=== PATIENT | male | born 1950 | race Caucasian/White ===

== ENCOUNTER 2017-03-06 17:52 | Inpatient (IN) | payer OTHER ==
[~2017-03-06] VITALS: Ht 175.3 cm; Wt 114.3 kg
--- NOTE | 2017-03-06 19:08 | Diagnostic Imaging Report ---
EXAM: Abdomen 4 Views including PA chest INDICATION: \S\CONSTIPATION \S\Y COMPARISON: None FINDINGS: Moderate amount of stool in the colon. No dilated loops of small bowel. Nonspecific air-fluid levels on upright position. Indeterminate calcification overlying the left pelvis. No abnormal calcifications overlying the renal shadows. No abnormal soft tissue masses. Moderate degenerative changes in the lumbar spine and pelvis. The lungs are clear. Tortuous thoracic aorta. The cardiac silhouette is within normal limits. IMPRESSION: 1. Moderate amount of retained feces without bowel dilatation or obstruction. 2. Indeterminate calcification overlying the left pelvis. Signed by: Dr. Patti Wall M.D. on 03/06/2017 7:04 PM
[2017-03-06] MEDS ORDERED: SODIUM CHLORIDE 0.9% 1000ML 1,000 ML IV STA (22:42)
[2017-03-06] MEDS ORDERED: ONDANSETRON HCL INJ 2 MG/ML VIAL IV STA (22:42)
[2017-03-06] MEDS ORDERED: PANTOPRAZOLE 40 MG 10ML VIAL IV STA (22:42)
[2017-03-06] MEDS ORDERED: DIATRIZOATE MEGL/DIATRIZOA SOD 30 ML BTL PO ONE (22:51)
[2017-03-06 23:24] LABS: BASOPHILS % 0.4 % (0.0-1.0); EOSINOPHILS # (AUTO) 0.1 (0.0-0.4); HEMATOCRIT 39.5 % (38.2-49.6); HEMOGLOBIN 12.9 g/dL (14.0-18.0); KETONES,URINE 2+ (NEGATIVE); LEUKOCYTE ESTERASE ,URINE NEGATIVE (NEGATIVE); LYMPHOCYTES # (AUTO) 1.6 (1.0-3.2); LYMPHOCYTES % 31.8 % (18.0-39.1); MEAN CORPUSCULAR HEMOGLOBIN 28.4 pg (28-32); MEAN CORPUSCULAR HGB CONC 32.7 g/dL (31-35); MONOCYTES # (AUTO) 0.5 (0.2-0.8); MONOCYTES % 10.2 % (4.4-11.3); NEUTROPHILS # (AUTO) 2.8 (2.1-6.9); NEUTROPHILS % 55.4 % (38.7-80.0); NITRITE,URINE NEGATIVE (NEGATIVE); PLATELET COUNT 258 x10e3/uL (140-360); PROTEIN,URINE DIPSTICK NEGATIVE (NEGATIVE); RED BLOOD COUNT 4.54 x10e6/uL (4.3-5.7); RED CELL DISTRIBUTION WIDTH 14.6 % (11.7-14.4); URINE UROBILINOGEN 8 mg/dL (0.2 - 1)
[2017-03-06 23:26] LABS: BILIRUBIN,URINE 1+ (NEGATIVE); CLARITY,URINE SL CLOUDY (CLEAR); COLOR,URINE AMBER (YELLOW)
[2017-03-06 23:34] LABS: BACTERIA,URINE FEW /HPF; EPITHELIAL CELLS,URINE RARE /LPF; INR 0.94; MUCUS,URINE MODERATE (RARE); PARTIAL THROMBOPLASTIN TIME 24.2 seconds (23.8-35.5); RBC,URINE 0-5 /HPF (0-5); WBC,URINE (MAN) 0-5 /HPF (0-5)
[2017-03-06 23:41] LABS: ALANINE AMINOTRANSFERASE 21 IU/L (0-55); ALBUMIN 3.8 g/dL (3.5-5.0); ALBUMIN/GLOBULIN RATIO 0.9 (0.8-2.0); ALKALINE PHOSPHATASE 93 IU/L (40-150); ANION GAP 13.8 mmol/L (8-16); BLOOD UREA NITROGEN 8 mg/dL (7-26); BUN/CREATININE RATIO 8 (6-25); CALCIUM 9.1 mg/dL (8.4-10.2); CARBON DIOXIDE 22 mmol/L (22-29); CHLORIDE 99 mmol/L (98-107); CREATINE KINASE 200 IU/L (30-200); CREATININE, SERUM 0.98 mg/dL (0.72-1.25); EST GLOMERULAR FILTRATION RATE > 60 ML/MIN (60-); GLUCOSE 82 mg/dL (74-118); LIPASE 24 U/L (8-78); MAGNESIUM 2.2 MG/DL (1.3-2.1); POTASSIUM 3.8 mmol/L (3.5-5.1); SODIUM 131 mmol/L (136-145)
[2017-03-06 23:47] LABS: TROPONIN I 0.021 ng/mL (0-0.300)
[2017-03-07] MEDS ORDERED: IOPAMIDOL 370 MG/ML 200 ML INFUS..BTL INJ ONE (00:02)
[2017-03-07] MEDS ORDERED: SODIUM CHLORIDE 0.9% 50ML 50 ML ONE (00:02)
--- NOTE | 2017-03-07 01:00 | Diagnostic Imaging Report ---
EXAM: CT Abdomen and Pelvis WITH contrast INDICATION: Abdominal pain, no bowel movements for 2 weeks, evaluate for obstruction COMPARISON: Acute abdominal series ON 03/06/2017 TECHNIQUE: Abdomen and pelvis were scanned utilizing a multidetector helical scanner from the lung base to the pubic symphysis after administration of IV contrast. Coronal and sagittal reformations were obtained. Routine protocol was performed. Scan was performed when during portal venous phase. IV CONTRAST: 100 mL of Isovue-370 ORAL CONTRAST: Gastrografin RADIATION DOSE: Total DLP: 709.68 mGy*cm Estimated effective dose: (DLP x 0.015 x size factor) mSv COMPLICATIONS: None FINDINGS: LINES and TUBES: None. LOWER THORAX: Unremarkable HEPATOBILIARY: No focal hepatic lesions. No biliary ductal dilation. GALLBLADDER: No radio-opaque stones or sludge. No wall thickening. SPLEEN: No splenomegaly. PANCREAS: No focal masses or ductal dilatation. ADRENALS: No adrenal nodules KIDNEYS/URETERS: Kidneys enhance symmetrically. No hydronephrosis. No cystic or solid mass lesions. No stones. GI TRACT: There is dilatation of the distal small bowel and proximal colon to the level of the hepatic flexure where a circumferential mass appears to result in complete obstruction of the colon best visualized on coronal series 301, image 37 and axial series 2, image 31. Appendix is normal. PELVIC ORGANS/BLADDER: Unremarkable. LYMPH NODES: No lymphadenopathy. VESSELS: There is mild atherosclerotic disease in the aorta and major arterial branches. PERITONEUM / RETROPERITONEUM: No free air or fluid. BONES: There are degenerative changes in the lumbar spine. SOFT TISSUES: Unremarkable. IMPRESSION: 1. Findings in the hepatic flexure of the colon is suspicious for soft tissue mass resulting in bowel obstruction. Colon carcinoma is suspected. 2. No evidence of adenopathy or distant metastasis on today's exam Signed by: Dr. Jose M Marte M.D. on 03/07/2017 12:57 AM
[2017-03-07] MEDS ORDERED: BENZOCAINE/TETRACAINE/BUTAMBEN AERO SPRAY 56 GM CAN TOP ONE (01:15)
[2017-03-07] MEDS ORDERED: CRESTOR10 MG PO (01:44)
[2017-03-07] MEDS ORDERED: MORPHINE SULFATE 2 MG/ML SYR IV PRN (02:00)
[2017-03-07] MEDS ORDERED: PROMETHAZINE 12.5MG/ NACL 0.9% 12.5 MG/50 ML BAG IV PRN (02:00)
[2017-03-07] MEDS: SODIUM CHLORIDE 0.9% 1000ML 1,000 ML IV SCH ×3 (02:14→20:31)
[2017-03-07 03:20] VITALS: BP 153/91
[2017-03-07 03:53] VITALS: BP 153/91
[2017-03-07 07:15] VITALS: BP 168/90
[2017-03-07] MEDS: ONDANSETRON HCL INJ 2 MG/ML VIAL IV PRN ×2 (07:32→15:24)
[2017-03-07 08:00] VITALS: BP 168/90
--- NOTE | 2017-03-07 10:12 | History and Physical ---
PCP: Dave Claros MD CONSULTANTS: Dr. Rolando Alexandre and Dr. Aiden Garzon. CHIEF COMPLAINT: Colonic mass and bowel obstruction. HISTORY: This 66-year-old male thought he had indigestion and dyspepsia for the past few weeks but apparently it worsened due to obstruction. The patient came to the emergency room and subsequently had imaging done that showed that he has a colonic mass. The patient has no previous history of problems with the bowel. He did not have colonoscopy, however. The CT scan showed the hepatic flexure of the colon suspicious for a soft-tissue mass resulting in bowel obstruction. Patient is pending for further workup. PAST MEDICAL HISTORY: None. PAST SURGICAL HISTORY: Noncontributory. SOCIAL HISTORY: Patient does not smoke or use alcohol. No recreational drugs. ALLERGIES: NO KNOWN ALLERGIES. HOME MEDICATIONS: None. REVIEW OF SYSTEMS: Nausea, vomiting, abdominal pain. PHYSICAL EXAMINATION GENERAL: The patient is not in acute distress. VITAL SIGNS: Temperature is 98, blood pressure 168/90, pulse rate 66, respirations 18. HEENT: Normocephalic, atraumatic. Anicteric. NECK: Supple grossly. PULMONARY: Diminished breath sounds. CARDIOVASCULAR: S1 and S2, regular rate and rhythm. ABDOMEN: Positive for tenderness without any guarding or rebound tenderness. EXTREMITIES: No cyanosis or edema. NEURO: There is no gross focal deficit. LABORATORY: Otherwise unremarkable. Hemoglobin and hematocrit of 12.[address] scan showed colonic soft-tissue mass. IMPRESSION 1. Colon mass. 2. Colon obstruction. 3. Elevated blood pressure due to intravenous fluids. PLAN: Decrease IV fluids. Consultation with Dr. Aiden Garzon and Dr. Rolando Alexandre. The patient will need a GI workup including most likely colonoscopy and subsequent surgery if there is a colonic mass. Job#: [id number]
[2017-03-07] MEDS: MORPHINE SULFATE 5 MG/ML VIAL IV PRN (15:33)
[2017-03-07 16:00] VITALS: BP 128/79
[2017-03-07 19:45] VITALS: BP 135/77
[2017-03-08 00:15] VITALS: BP 136/78
[2017-03-08 04:30] VITALS: BP 132/76
[2017-03-08] MEDS: ONDANSETRON HCL INJ 2 MG/ML VIAL IV PRN ×2 (06:30→19:58)
[2017-03-08] MEDS: MORPHINE SULFATE 5 MG/ML VIAL IV PRN ×2 (06:30→19:57)
[2017-03-08 06:45] LABS: BASOPHILS % 0.2 % (0.0-1.0); EOSINOPHILS # (AUTO) 0.2 (0.0-0.4); EOSINOPHILS % 3.5 % (0.0-6.0); HEMATOCRIT 36.7 % (38.2-49.6); LYMPHOCYTES # (AUTO) 1.3 (1.0-3.2); LYMPHOCYTES % 30.1 % (18.0-39.1); MEAN CORPUSCULAR HEMOGLOBIN 28.6 pg (28-32); MEAN CORPUSCULAR HGB CONC 32.7 g/dL (31-35); MEAN CORPUSCULAR VOLUME 87.4 fL (81-99); MONOCYTES # (AUTO) 0.5 (0.2-0.8); MONOCYTES % 12.4 % (4.4-11.3); NEUTROPHILS # (AUTO) 2.3 (2.1-6.9); NEUTROPHILS % 53.6 % (38.7-80.0); PLATELET COUNT 218 x10e3/uL (140-360); RED CELL DISTRIBUTION WIDTH 14.5 % (11.7-14.4)
[2017-03-08 07:17] LABS: ALANINE AMINOTRANSFERASE 16 IU/L (0-55); ALBUMIN 2.9 g/dL (3.5-5.0); ALKALINE PHOSPHATASE 75 IU/L (40-150); ANION GAP 9.7 mmol/L (8-16); BLOOD UREA NITROGEN 5 mg/dL (7-26); BUN/CREATININE RATIO 6 (6-25); CALCIUM 8.4 mg/dL (8.4-10.2); CARBON DIOXIDE 25 mmol/L (22-29); CHLORIDE 109 mmol/L (98-107); CREATININE, SERUM 0.82 mg/dL (0.72-1.25); EST GLOMERULAR FILTRATION RATE > 60 ML/MIN (60-); GLUCOSE 99 mg/dL (74-118); POTASSIUM 3.7 mmol/L (3.5-5.1); SODIUM 140 mmol/L (136-145)
[2017-03-08 08:00] VITALS: BP 142/66
[2017-03-08] MEDS: SODIUM CHLORIDE 0.9% 1000ML 1,000 ML IV SCH ×2 (09:49→23:42)
[2017-03-08 10:00] VITALS: BP 142/66
[2017-03-08 12:00] VITALS: BP 111/64
[2017-03-08] MEDS ORDERED: PEG (High)/E-LYTE SOLN 4,000 ML BTL PO NR (12:00)
--- NOTE | 2017-03-08 12:42 | Consultation ---
DATE OF CONSULTATION: March 08, 2017 GASTROENTEROLOGY CONSULTATION REFERRING PHYSICIAN: Toni Brooks MD REASON FOR CONSULTATION: Bowel obstruction. Colon mass. HISTORY OF PRESENT ILLNESS: Mr. Anderson is a very pleasant, 66-year-old male with no known history. He has never had a colonoscopy. He came in with indigestion and dyspepsia for several weeks. Imaging showed concern for obstruction from a colon mass in the hepatic flexure. NG tube returned minimal fluid. It was very uncomfortable and was pulled. He is tolerating clear liquids. He is having flatus as well as bowel movements, which are soft. He denies abdominal pain, nausea or vomiting currently. No fevers, chills or sweats. PAST MEDICAL HISTORY: None. He does not regularly see a doctor. MEDICATIONS AND ALLERGIES: Reviewed. Please see MAR and medication reconciliation form. SOCIAL HISTORY: No alcohol, tobacco or illicit substance. FAMILY HISTORY: Reviewed and noncontributory. REVIEW OF SYSTEMS: Positive for that mentioned in HPI, otherwise unremarkable. PHYSICAL EXAMINATION GENERAL: Pleasant, alert, oriented, in no acute distress. HEENT: Pupils are equal, round and react to light. NECK: Supple. LUNGS: Clear. CARDIOVASCULAR: S1, S2. ABDOMEN: Soft. Nontender and nondistended. Normal bowel sounds. EXTREMITIES: No clubbing, cyanosis or edema. PSYCH: Calm, cooperative. NEUROLOGIC: Nonfocal. HEM-ONC: No bruising or adenopathy. Electronic health records reviewed for laboratory and radiologic studies as well as history. ASSESSMENT 1. Colon mass. 2. Partial bowel obstruction secondary to #1. 3. Anemia. PLAN: At the current time, we will keep him on a clear liquid diet. Will do a slow bowel prep over the weekend and plan for colonoscopy likely Saturday if he can tolerate it. I appreciate Dr. Garzon has already seen the patient. Will follow closely with you. Job#: [id number]
[2017-03-08 20:14] VITALS: BP 151/90
[2017-03-09] VITALS (8 sets, daily range): BP systolic 119–181; BP diastolic 58–90
[2017-03-09 07:09] LABS: BASOPHILS % 0.5 % (0.0-1.0); EOSINOPHILS # (AUTO) 0.2 (0.0-0.4); EOSINOPHILS % 4.6 % (0.0-6.0); HEMATOCRIT 37.3 % (38.2-49.6); HEMOGLOBIN 12.1 g/dL (14.0-18.0); LYMPHOCYTES # (AUTO) 1.1 (1.0-3.2); LYMPHOCYTES % 30.6 % (18.0-39.1); MEAN CORPUSCULAR HEMOGLOBIN 28.1 pg (28-32); MEAN CORPUSCULAR HGB CONC 32.4 g/dL (31-35); MEAN CORPUSCULAR VOLUME 86.5 fL (81-99); MONOCYTES # (AUTO) 0.5 (0.2-0.8); MONOCYTES % 12.2 % (4.4-11.3); NEUTROPHILS # (AUTO) 1.9 (2.1-6.9); NEUTROPHILS % 51.8 % (38.7-80.0); PLATELET COUNT 230 x10e3/uL (140-360); RED BLOOD COUNT 4.31 x10e6/uL (4.3-5.7); RED CELL DISTRIBUTION WIDTH 14.7 % (11.7-14.4)
[2017-03-09 07:30] LABS: ANION GAP 11.5 mmol/L (8-16); BLOOD UREA NITROGEN < 5 mg/dL (7-26); CALCIUM 8.7 mg/dL (8.4-10.2); CARBON DIOXIDE 25 mmol/L (22-29); CHLORIDE 109 mmol/L (98-107); CREATININE, SERUM 0.87 mg/dL (0.72-1.25); EST GLOMERULAR FILTRATION RATE > 60 ML/MIN (60-); GLUCOSE 90 mg/dL (74-118); POTASSIUM 3.5 mmol/L (3.5-5.1); SODIUM 142 mmol/L (136-145)
[2017-03-09 07:35] LABS: BUN/CREATININE RATIO 6 (6-25)
[2017-03-09] MEDS: SODIUM CHLORIDE 0.9% 1000ML 1,000 ML IV SCH (12:26)
--- NOTE | 2017-03-09 12:51 | Consultation ---
DATE OF CONSULTATION: March 08, 2017 CHIEF COMPLAINT: Abdominal discomfort and constipation. HISTORY OF PRESENT ILLNESS: The patient is a 66-year-old male with 10-day history of abdominal distention and discomfort with indigestion and no bowel movements. The patient denies vomiting but admitted to nausea and decreased oral intake. The patient never had a colonoscopy. PAST MEDICAL HISTORY: Unremarkable for any chronic medical illness. SURGICAL HISTORY: Is unremarkable. ALLERGIES: NO KNOWN DRUG ALLERGIES. SOCIAL HABITS: The patient denies smoking or alcohol abuse. REVIEW OF SYSTEMS: No chest pain or shortness of breath. No cough. PHYSICAL EXAMINATION: VITAL SIGNS: Stable, afebrile. GENERAL: Awake, alert an somewhat apprehensive HEENT: Sclerae anicteric. NECK: Supple. LUNGS: Clear. HEART: Regular rhythm. No murmurs. ABDOMEN: Mildly distended but no focal tenderness or mass. EXTREMITIES: Without cyanosis or edema. LABORATORY DATA: White cell count is 5, hemoglobin of 12. Creatinine is 0.8. Albumin 3.8. Abdominal x-ray showed retained feces in the colon without obstruction. CT scan showed hepatic flexure, circumferential mass with proximal bowel dilatation. ASSESSMENT: Partial colonic obstruction, possible mass lesion. PLAN: Colonoscopy to determine source of obstruction. The patient will be managed operatively after colonoscopy. Job#: [id number]
[2017-03-09] MEDS: ONDANSETRON HCL INJ 2 MG/ML VIAL IV PRN ×2 (14:40→21:17)
[2017-03-09] MEDS: MORPHINE SULFATE 5 MG/ML VIAL IV PRN ×2 (14:40→21:17)
[2017-03-10] VITALS (9 sets, daily range): BP systolic 125–170; BP diastolic 64–86
[2017-03-10] MEDS: SODIUM CHLORIDE 0.9% 1000ML 1,000 ML IV SCH ×2 (05:42→15:23)
[2017-03-10] MEDS ORDERED: POTASSIUM CHLORIDE 20 MEQ TAB CR PO ONE (12:00)
[2017-03-10] MEDS: MORPHINE SULFATE 5 MG/ML VIAL IV PRN (18:52)
[2017-03-10] MEDS: ONDANSETRON HCL INJ 2 MG/ML VIAL IV PRN (18:52)
[2017-03-10] MEDS: ALPRAZOLAM 0.25 MG TAB PO PRN (20:54)
[2017-03-11] VITALS (8 sets, daily range): BP systolic 134–169; BP diastolic 66–82
[2017-03-11] MEDS: SODIUM CHLORIDE 0.9% 1000ML 1,000 ML IV SCH ×2 (06:22→23:29)
[2017-03-11] MEDS ORDERED: MIDAZOLAM HCL 2 MG/2 ML VIAL ONE (12:51)
[2017-03-11] MEDS ORDERED: FENTANYL CITRATE/PF 100MCG/2 ML INJ ONE (12:51)
[2017-03-12 00:30] VITALS: BP 144/65
[2017-03-12 04:00] VITALS: BP 146/75
[2017-03-12 07:30] VITALS: BP 146/75
[2017-03-12 07:58] VITALS: BP 142/80
[2017-03-12 08:59] LABS: BASOPHILS % 0.4 % (0.0-1.0); EOSINOPHILS # (AUTO) 0.1 (0.0-0.4); EOSINOPHILS % 2.3 % (0.0-6.0); HEMATOCRIT 36.8 % (38.2-49.6); LYMPHOCYTES # (AUTO) 1.1 (1.0-3.2); LYMPHOCYTES % 22.5 % (18.0-39.1); MEAN CORPUSCULAR HEMOGLOBIN 28.2 pg (28-32); MEAN CORPUSCULAR HGB CONC 32.6 g/dL (31-35); MEAN CORPUSCULAR VOLUME 86.4 fL (81-99); MONOCYTES # (AUTO) 0.4 (0.2-0.8); MONOCYTES % 9.1 % (4.4-11.3); NEUTROPHILS # (AUTO) 3.2 (2.1-6.9); NEUTROPHILS % 65.5 % (38.7-80.0); PLATELET COUNT 244 x10e3/uL (140-360); RED BLOOD COUNT 4.26 x10e6/uL (4.3-5.7); RED CELL DISTRIBUTION WIDTH 14.6 % (11.7-14.4)
[2017-03-12 09:14] LABS: ANION GAP 11.6 mmol/L (8-16); BLOOD UREA NITROGEN < 5 mg/dL (7-26); CALCIUM 8.8 mg/dL (8.4-10.2); CARBON DIOXIDE 27 mmol/L (22-29); CHLORIDE 108 mmol/L (98-107); CREATININE, SERUM 0.88 mg/dL (0.72-1.25); EST GLOMERULAR FILTRATION RATE > 60 ML/MIN (60-); GLUCOSE 92 mg/dL (74-118); POTASSIUM 3.6 mmol/L (3.5-5.1); SODIUM 143 mmol/L (136-145)
[2017-03-12 09:18] LABS: BUN/CREATININE RATIO 6 (6-25)
[2017-03-12 12:52] VITALS: BP 164/77
[2017-03-12] MEDS ORDERED: BUPIVACAINE 0.25% 30ML SDV INJ ONE (13:59)
[2017-03-12] MEDS ORDERED: CEFOXITIN 1GM/ DEXTROSE 50ML 50 ML IV ONE (16:31)
[2017-03-12] MEDS ORDERED: FENTANYL CITRATE/PF 100MCG/2 ML INJ ONE (17:02)
[2017-03-12] MEDS ORDERED: MORPHINE SULFATE INJ 10 MG/ML ONE (17:02)
[2017-03-12] MEDS ORDERED: MIDAZOLAM HCL 2 MG/2 ML VIAL ONE (17:02)
[2017-03-12] MEDS ORDERED: MORPHINE SULFATE 4 MG/ML SYR IV PRN (18:45)
[2017-03-12] MEDS ORDERED: CEFOXITIN SOD 1 GM VIAL ONE (19:16)
[2017-03-12] MEDS ORDERED: DESFLURANE 240 ML BTL INH ONE (19:16)
[2017-03-12] MEDS ORDERED: ACETAMINOPHEN 1000 MG/100 ML IV ONE (19:16)
[2017-03-12] MEDS ORDERED: LIDOCAINE HCL 2% LOCAL INJ 5 ML SDV VIAL INJ ONE ×2 (19:16→19:21)
[2017-03-12] MEDS ORDERED: ROCURONIUM BROMIDE 10 MG/ML 5ML VIAL ONE (19:16)
[2017-03-12] MEDS ORDERED: PROPOFOL IV EMULSION 10 MG/ML 20 ML VIAL ONE ×2 (19:16→19:21)
[2017-03-12] MEDS ORDERED: ONDANSETRON HCL INJ 2 MG/ML VIAL ONE (19:16)
[2017-03-12] MEDS ORDERED: DEXAMETHASONE SOD PHOS INJ 4 MG/ML VIAL ONE (19:16)
[2017-03-12] MEDS ORDERED: GLYCOPYRROLATE INJ 1MG/ 5 ML SYR ONE (19:21)
[2017-03-12] MEDS ORDERED: MORPHINE SULFATE 5 MG/ML VIAL IV PRN (19:30)
[2017-03-12] MEDS: MORPHINE SULFATE 4 MG/ML SYR IV PRN ×2 (19:52→23:33)
--- NOTE | 2017-03-12 19:53 | Operative Report ---
DATE OF PROCEDURE: March 12, 2017 PREOPERATIVE DIAGNOSIS: Colonic mass. POSTOPERATIVE DIAGNOSIS: Colonic mass. OPERATIVE PROCEDURE: Laparoscopic-assisted right colectomy. DIRECT MARKETING COORDINATOR: None. ANESTHESIA: General endotracheal, Dr. Benítez. INDICATIONS: This patient is a 66-year-old male with history of nausea and vomiting and CT scan showing mass in the right colon at the hepatic flexure, confirmed by colonoscopy showing a large tubovillous adenoma with ulceration. Patient has consented for surgery with all attendant risks discussed. PROCEDURE FINDINGS: Tumor at the hepatic flexure in the proximal transverse colon. DESCRIPTION OF PROCEDURE: Patient brought to OR intubated. Abdomen was prepped with alcohol and draped in sterile fashion. A supraumbilical incision is made down to the fascia and a 5 mm port inserted. Insufflation then begun. Under direct vision, other working ports are placed in the subxiphoid and right lower quadrant. We then proceeded to mobilize the right colon by dividing the white line of Toldt from the cecum toward the hepatic flexure. The proximal transverse colon is also taken down by detaching the gastrocolic ligament from the transverse colon. The right colon was then mobilized medially from the perinephric fat and we proceeded to convert to an open upper midline incisions, exteriorizing the mobilized right colon. We proceeded to transect the proximal transverse colon with a ANY stapler and control the mesentery at the level of the proximal branch of the middle colic vessel using suture ligature of 2-0 silk. The terminal ileum transected 10 cm proximal to the ileocecal valve with a ANY stapler and mesentery to the right colon including the ileocolic vessel was taken near its roots and the vessel was controlled with 2-0 silk stitch tie. The specimen removed from the operative field which is then irrigated. Hemostasis achieved. We then performed a staple end-to-end anastomosis between the ileum and the mid transverse colon using a ANY stapler and TL-60 instrument. The mesenteric defect was also closed with running 3-0 silk stitches. The operative field was then irrigated with saline solution. Hemostasis achieved. We proceeded to close the abdomen with running number 1 PDS and skin was closed with tata. Patient was extubated transport and transported in guarded condition to recovery room. Estimated blood loss 30 mL. Job#: [id number] GH
[2017-03-12 20:00] VITALS: BP 174/79
[2017-03-12] MEDS: CEFOXITIN SOD 1 GM VIAL IV SCH (22:40)
[2017-03-12] MEDS: LACTATED RINGER'S 1,000 ML IV SCH (23:59)
[2017-03-13] VITALS (7 sets, daily range): BP systolic 130–186; BP diastolic 62–82
[2017-03-13] MEDS ORDERED: CEFOXITIN 1GM/ DEXTROSE 50ML 50 ML IV SCH
[2017-03-13] MEDS: MORPHINE SULFATE 4 MG/ML SYR IV PRN ×6 (03:17→23:56)
[2017-03-13] MEDS: CEFOXITIN SOD 1 GM VIAL IV SCH ×3 (04:14→16:30)
[2017-03-13] MEDS: LACTATED RINGER'S 1,000 ML IV SCH ×3 (08:50→23:56)
[2017-03-13] MEDS ORDERED: SODIUM CHLORIDE 0.9% 1000ML 1,000 ML ONE (16:20)
[2017-03-13] MEDS: ALPRAZOLAM 0.25 MG TAB PO PRN (23:02)
[2017-03-14] VITALS (7 sets, daily range): BP systolic 121–138; BP diastolic 58–77
[2017-03-14] MEDS: MORPHINE SULFATE 4 MG/ML SYR IV PRN (04:17)
[2017-03-14 07:07] LABS: BASOPHILS % 0.3 % (0.0-1.0); EOSINOPHILS # (AUTO) 0.1 (0.0-0.4); EOSINOPHILS % 0.7 % (0.0-6.0); HEMATOCRIT 37.3 % (38.2-49.6); LYMPHOCYTES % 12.7 % (18.0-39.1); MEAN CORPUSCULAR HEMOGLOBIN 28.1 pg (28-32); MEAN CORPUSCULAR HGB CONC 32.2 g/dL (31-35); MEAN CORPUSCULAR VOLUME 87.4 fL (81-99); MONOCYTES # (AUTO) 0.6 (0.2-0.8); MONOCYTES % 7.3 % (4.4-11.3); NEUTROPHILS # (AUTO) 5.9 (2.1-6.9); NEUTROPHILS % 78.7 % (38.7-80.0); PLATELET COUNT 211 x10e3/uL (140-360); RED BLOOD COUNT 4.27 x10e6/uL (4.3-5.7); RED CELL DISTRIBUTION WIDTH 14.9 % (11.7-14.4)
[2017-03-14 07:25] LABS: ANION GAP 13.6 mmol/L (8-16); BLOOD UREA NITROGEN 7 mg/dL (7-26); BUN/CREATININE RATIO 9 (6-25); CALCIUM 8.7 mg/dL (8.4-10.2); CARBON DIOXIDE 28 mmol/L (22-29); CHLORIDE 99 mmol/L (98-107); CREATININE, SERUM 0.79 mg/dL (0.72-1.25); EST GLOMERULAR FILTRATION RATE > 60 ML/MIN (60-); GLUCOSE 94 mg/dL (74-118); POTASSIUM 3.6 mmol/L (3.5-5.1); SODIUM 137 mmol/L (136-145)
[2017-03-14] MEDS: HYDROCODONE/APAP 7.5MG-325MG 1 EA TAB PO PRN ×4 (08:40→23:54)
[2017-03-14] MEDS: SENNOSIDES 8.6 MG TAB PO SCH ×2 (09:00→17:34)
[2017-03-15] VITALS (7 sets, daily range): BP systolic 131–173; BP diastolic 60–79
[2017-03-15] MEDS: HYDROCODONE/APAP 7.5MG-325MG 1 EA TAB PO PRN ×4 (06:12→21:10)
[2017-03-15] MEDS: SENNOSIDES 8.6 MG TAB PO SCH ×2 (08:40→16:11)
[2017-03-15] MEDS ORDERED: BISACODYL 10 MG SUPP PR NR (10:00)
[2017-03-16] VITALS (7 sets, daily range): BP systolic 117–149; BP diastolic 65–77
[2017-03-16 06:47] LABS: BASOPHILS % 0.2 % (0.0-1.0); EOSINOPHILS # (AUTO) 0.4 (0.0-0.4); EOSINOPHILS % 9.3 % (0.0-6.0); HEMATOCRIT 35.4 % (38.2-49.6); HEMOGLOBIN 11.7 g/dL (14.0-18.0); LYMPHOCYTES # (AUTO) 1.1 (1.0-3.2); LYMPHOCYTES % 27.1 % (18.0-39.1); MEAN CORPUSCULAR HEMOGLOBIN 28.3 pg (28-32); MEAN CORPUSCULAR HGB CONC 33.1 g/dL (31-35); MEAN CORPUSCULAR VOLUME 85.7 fL (81-99); MONOCYTES # (AUTO) 0.5 (0.2-0.8); MONOCYTES % 11.2 % (4.4-11.3); NEUTROPHILS # (AUTO) 2.2 (2.1-6.9); PLATELET COUNT 244 x10e3/uL (140-360); RED BLOOD COUNT 4.13 x10e6/uL (4.3-5.7)
[2017-03-16 07:18] LABS: ANION GAP 10.3 mmol/L (8-16); BLOOD UREA NITROGEN < 5 mg/dL (7-26); BUN/CREATININE RATIO 7 (6-25); CALCIUM 8.7 mg/dL (8.4-10.2); CARBON DIOXIDE 29 mmol/L (22-29); CHLORIDE 104 mmol/L (98-107); CREATININE, SERUM 0.75 mg/dL (0.72-1.25); EST GLOMERULAR FILTRATION RATE > 60 ML/MIN (60-); GLUCOSE 94 mg/dL (74-118); POTASSIUM 3.3 mmol/L (3.5-5.1); SODIUM 140 mmol/L (136-145)
[2017-03-16] MEDS: HYDROCODONE/APAP 7.5MG-325MG 1 EA TAB PO PRN ×3 (09:57→22:22)
[2017-03-16] MEDS: SENNOSIDES 8.6 MG TAB PO SCH ×2 (09:57→17:24)
[2017-03-16] MEDS ORDERED: POTASSIUM CHLORIDE 20 MEQ TAB CR PO ONE (12:15)
[2017-03-17] VITALS: BP 141/70
[2017-03-17 04:00] VITALS: BP 146/77
[2017-03-17] MEDS ORDERED: NORCO 5-325 TA1 EACH PO (07:24)
[2017-03-17] MEDS ORDERED: SENNOSIDES8.6 MG PO (07:25)
[2017-03-17] MEDS ORDERED: XANAX0.25 MG PO (07:26)
[2017-03-17] MEDS ORDERED: ZOFRAN ODT4 MG PO (07:27)
[2017-03-17] MEDS ORDERED: KEFLEX500 MG PO (07:28)
[2017-03-17 08:00] VITALS: BP 134/75
[2017-03-17 08:53] VITALS: BP 134/75
[2017-03-17] MEDS: SENNOSIDES 8.6 MG TAB PO SCH (08:59)
[2017-03-17] MEDS: HYDROCODONE/APAP 7.5MG-325MG 1 EA TAB PO PRN (09:00)
--- NOTE | 2017-03-17 10:48 | Discharge Summary ---
PCP: Dr. Dave Claros CONSULTANTS: Dr. Aiden Garzon and Dr. Samra Dan FINAL DIAGNOSES 1. Hepatic flexure colon mass, status post biopsy with intramucosal carcinoma. 2. Status post right hemicolectomy at the hepatic flexure mass done by Dr. Aiden Garzon. 3. Anxiety disorder. 4. Electrolyte disorder. 5. Hypokalemia, resolved. A 66-year-old male came in with partial colon obstruction due to hepatic flexure colon mass. The biopsy showed that the patient had at least intramucosal carcinoma. The terminal ileum biopsies showed ileal mucosa with activity ileitis and a rare crypt abscess. The patient was seen by Dr. Aiden Garzon after the colonoscopy done by Dr. Samra Dan. The patient is now status post right hemicolectomy done by Dr. Aiden Garzon on March 12, 2017. Since after surgery, the patient is very anxious and has been in the hospital for the past few days. The patient did have a bowel movement. He is able and tolerating all his diet. The patient was cleared for discharge for the past few days, but because of his anxiety he was kept for an extra 2 days. The patient is otherwise stable and not on any IV medication. Ambulatory and tolerating his diet. The patient will go home today. Resume his Crestor for his cholesterol. DISCHARGE MEDICATIONS 1. Senna-S 1 tablet b.i.d. 2. Xanax 0.25 mg q.6 h. p.r.n. for anxiety. 3. Zofran ODT 4 mg sublingual q.4 h. p.r.n. for nausea and vomiting. 4. Keflex 500 mg t.i.d. for 7 days. 5. Edmond 5 mg q.6 h. p.r.n. for pain, #30 only. The patient is stable and discharged home today. Follow up with Dr. Garzon, Dr. Dan and Dr. Dave Claros within a week. Job#: [id number] [facility]
== END 2017-03-17 09:52 | disposition home or self-care (01) | DRG 330 ==
LOC: ER 17:52 → MED/SURG2 03-07 02:10 → MED/SURG 03-10 20:17
PROVIDERS: ADMIT Internal Medicine; ATTEND Internal Medicine
PROC: 0DBB8ZX Excision of Ileum, Via Natural or Artificial Opening Endoscopic, Diagnostic (ICD-10-PCS; 2017-03-11)
PROC: 0DBE8ZX Excision of Large Intestine, Via Natural or Artificial Opening Endoscopic, Diagnostic (ICD-10-PCS; 2017-03-11)
PROC: 0DTF0ZZ Resection of Right Large Intestine, Open Approach (ICD-10-PCS; principal; 2017-03-12 14:00)
DX: C18.2 Malignant neoplasm of ascending colon (principal); K56.690 Other partial intestinal obstruction; D64.9 Anemia, unspecified; R14.0 Abdominal distension (gaseous); K64.8 Other hemorrhoids; K64.4 Residual hemorrhoidal skin tags; K52.9 Noninfective gastroenteritis and colitis, unspecified; T39.395A Adverse effect of other nonsteroidal anti-inflammatory drugs [NSAID], initial encounter; K59.00 Constipation, unspecified
CPT/HCPCS: 36415; 45380; 74022; 74177; 80048; 80053; 81001; 82550; 82553; 83690; 83735; 84484; 85025; 85610; 85730; 87086; 88305; 88309; 88342; 93005; 99284; J0694; J1100; J2001; J2250; J2270; J2405; J2550; J7030; J7120